=== PATIENT | male | born 1970 | race Hispanic/Latino ===

== ENCOUNTER → 2017-11-02 | Day surgery (SDC) | payer OTHER ==
--- NOTE | 2017-10-25 11:54 | History & Physical Pre-Op ---
See Addendum General Information and HPI MD Statement: I have seen and personally examined DARIUS ROBERTS and documented this H&P. The patient is a 47 year old M who presented with a patient stated chief complaint of a chronic nonhealing wound of the medial right midfoot. The patient has Charcot neuroarthropathy and a long history of type 2 diabetes with peripheral neuropathy. This patient was referred to me by Bradley Hutson DPM during an appointment with him were reviewed showing examined the patient on . Preoperative diagnosis: Charcot neuroarthropathy of the right foot with plantar midfoot ulceration Planned procedure: Percutaneous Achilles tendon lengthening, right foot Planned hemostasis: None Planned anesthesia: Mac and local 0.5% Marcaine plain high ankle block Source of Information: patient Exam Limitations: no limitations History of Present Illness: The patient is a 47 year old M who presented with a patient stated chief complaint of a chronic nonhealing wound of the medial right midfoot. The patient has Charcot neuroarthropathy and a long history of type 2 diabetes with peripheral neuropathy. This patient was referred to me by Bradley Hutson DPM during an appointment with him were reviewed showing examined the patient on . We had discussed multiple surgical and nonsurgical options of treatment on this date and reviewed his radiographs taken on that date, and agreed with the active open wound that we should at the very least lengthen his Achilles tendon to take pressure off of the midfoot wound as the first step of a staged approach where we would consider a more substantial reconstruction after we exhaust local wound care, total contact casting, and other bracing. Allergies/Medications Allergies: Coded Allergies: No Known Allergies (02/12/16) Home Med list Oxycodone HCl/Acetaminophen (Percocet 5-325 MG Tablet) 1 EACH TABLET 1 TAB PO Q4P PRN PAIN SCALE 7-10 (SEVERE) Sitagliptin Phos/Metformin HCl (Janumet 50-1,000 MG Tablet) 1 EACH TABLET 1 TAB PO BID DIABETES (Reported) Reason to Stop at ADM: ON ISS Compliance With Home Meds: UNKNOWN Past History Medical History Neurological: NONE EENT: NONE Cardiovascular: hypertension Respiratory: obstructive sleep apnea Gastrointestinal: NONE Hepatic: NONE Renal: NONE Musculoskeletal: NONE Psychiatric: NONE Endocrine: diabetes Cancer(s): NONE History of MRSA: No History of VRE: No History of CDIFF: No Surgical History Pertinent Surgical History: SURGERY ON RIGHT ELBOW COMPLICATED BY A STAPH INFECTION Past Family/Social History Family History Relations & Conditions if any grandmother (DM). paternal aunt (SLE). Review of Systems Review of Systems: A 14 point review of systems was performed, and was found to be negative apart from the patient's complaints described above in the history of present illness. Exam & Diagnostic Data Physical Exam: The patient has palpable pedal pulses, normal temperature gradient warm to cool proximal to distal, capillary refill time is 3 seconds in all 10 toes. Patient is completely insensate from the distal tips of his toes to approximately the heel equal and bilateral. Patient has a significant equinus deformity bilaterally with a maximum dorsiflexion of 0 on the right side, 5 on left side. Patient is 5 out of 5 muscle power in all lower extremity compartments. Patient has a plantar medial ulceration measuring about 1 cm in diameter with extensive hyperkeratosis at its margins and a fibro-granular base with no draining, no edema, no erythema, no malodor. There is also a widening of the midfoot and rocker-bottom deformity of the medial column consistent with Charcot midfoot collapse. There is, however, no calor in the midfoot. Assessment/Plan Assessment/Plan: 47-year-old male with a noninfected plantar midfoot ulceration and Charcot neuroarthropathy of the right foot for Achilles tendon lengthening as the beginning of a staged approach for reconstructive surgery. The patient was seen and evaluated in our [place] office on 10/18/2017. I explained all the risks and benefits of the procedures to be performed, and made no guarantees about their outcome. Patient is aware that he is going to be placed in a cast for a proximally 4 weeks postoperatively with weekly follow-up visits at the [facility] wound care center. The patient is aware that this is a staged approach, with the first step being correction of the deforming force and his Charcot foot via Achilles tendon lengthening with total contact casting thereafter until the plantar wound is healed. The patient will be further evaluated at that point for a medial column fusion as a means of correcting further deformities caused by the disease, and stabilizing the foot as a means of preventing major amputation in the future. Patient is aware that these are all salvage procedures, and that he is not guaranteed to avoid a below -knee amputation completely and that this may be an option in the future depending on multiple risk factors from his overall health, and risks associated with the procedures. The patient will be given a small supply of Percocet 5/325 for postoperative pain control, and should not require any other medications prior to discharge. The patient will follow up at the [place] wound care center on November 02. The patient will be nonweightbearing with crutches and/or a rolling knee walker, and should be gait trained by the physical therapy team prior to discharge. As Ranked By This Provider Problem List: 1. Diabetes 2. Non-pressure chronic ulcer of other part of left foot with fat layer exposed
[~2017-11-02] VITALS: Ht 175.3 cm; Wt 106.6 kg
[~2017-11-02] MED LIST: JANUMET 50-1,01 EACH PO; PERCOCET 5-3251 EACH PO; UNASYN 3 GM VIAL3 GM IV
--- NOTE | 2017-11-02 13:26 | Operative Report ---
Operative/Inv Procedure Report Surgery Date: 11/02/17 Name of Procedure: Achilles tendon lengthening, right foot Excisional debridement of skin and soft tissue, right midfoot ulcer Pre-Operative Diagnosis: Charcot neuroarthropathy, right foot, with a noninfected midfoot ulcer. Post-Operative Diagnosis: Charcot neuroarthropathy, right foot, with a noninfected midfoot ulcer. Estimated Blood Loss: scant Surgeon/Change Of Address Clerk: Gilmar Cash DPM Anesthesia: monitored anesthesia care, with a 15 mL high right ankle block consisting of a 50-50 mixture of 2% lidocaine plain and 0.5% Marcaine plain Specimens: None Microbiology: None Tourniquet: None Complications: None Condition: Stable Operative Indication: Patient was diagnosed with Charcot neuroarthropathy with tarsal metatarsal joint collapse by another account support rep, and was referred to me for surgical management. This is the first of a stepwise correction of his Charcot deformities. After his Achilles is been successfully lengthened and he receives exhaustion of local wound care and total contact casting, decision will be made as as to his candidacy for osseous reconstruction. Operative/Procedure Note Note: After the right foot was prepped and draped from the distal tips of the toes to the tibial tuberosity in the usual sterile manner roll of Coban was used to drape out the patient's forefoot and midfoot, and our top gloves were taken off. Patient was placed in maximal dorsiflexion and only was able to dorsiflex to neutral ankle position. Using a percutaneous triple hemisection technique, and Achilles tendon lengthening was performed on the right foot and the patient gained 15 of dorsiflexion and passive range of motion. The 3 percutaneous stab wounds were each sutured with a single simple interrupted 4-0 nylon suture. A Tegaderm was placed over the clean surgical field to drape it out from the wound debridement. The Coban was removed from the forefoot and midfoot and on the plantar aspect of the midfoot and a 6mm x 6mm x 4mm deep fibrous wound was identified with a hyperkeratotic rim. Excisional debridement was carried out on this wound with a rongeur and a fresh #15 blade. Small wet-to-dry dressing was placed over the wound, and this was well-padded fall being incorporated into a modified single layer Valentin dressing and posterior splint in the neutral position. Discharge Disposition: Same Day Admissions Additional Comments: The patient was escorted to the postanesthesia care unit in no apparent distress , afebrile, vital signs stable, neurovascular status intact. The patient is to be nonweightbearing on the operative foot for a minimum of 4 weeks, and should be gait trained by physical therapy for crutches and/or a walker. If neither of these are effective I will write a prescription for a rolling knee walker, which his has agreed to procure separately and bring back to the hospital. The patient is to follow-up in 1 week at her wound care center, where he will be converted to a total contact cast of both immobilize the ankle and offload the midfoot ulceration. He was given a small supply of Percocet 5/325 for postoperative pain, should not require anything further from the hospital.
== END ==
LOC: STS 10-26 07:00
DX: E11.610 Type 2 diabetes mellitus with diabetic neuropathic arthropathy (principal); E11.621 Type 2 diabetes mellitus with foot ulcer; L97.512 Non-pressure chronic ulcer of other part of right foot with fat layer exposed; Z79.84 Long term (current) use of oral hypoglycemic drugs; I10 Essential (primary) hypertension; G47.33 Obstructive sleep apnea (adult) (pediatric)
CPT/HCPCS: C9399; J0131; J0690; J1885; J2001; J2250